=== PATIENT | male | born 1950 | race Caucasian/White ===

== ENCOUNTER → 2025-02-05 | Outpatient (CLI) | payer MEDICARE, SELFPAY ==
--- NOTE | 2025-02-05 09:46 | RAD_ITS ---
PROCEDURE: L/S SPINE MIN 4 VIEWS 02/05/2025 REASON FOR EXAM: INFLAMMATORY POLYARTHROPATHY TECHNIQUE: Procedure Code: RADSPLS Modality: DX Procedure: L/S SPINE MIN 4 VIEWS FINDINGS: No evidence acute fracture or dislocation. No visualized pars defects. Grade 1 anterolisthesis of L4 on L5. Severe disc space narrowing at L4-5 and L5-S1. Up to mild disc space narrowing of the other visualized levels. Vertebral body heights are maintained. RAD/L/S Spine Min 4 Views IMPRESSION: Spondylosis most pronounced in the lower lumbar spine. Spondylolisthesis. Reading Location: [id number]
--- NOTE | 2025-02-05 09:46 | RAD_ITS ---
PROCEDURE: L/S SPINE MIN 4 VIEWS 02/05/2025 REASON FOR EXAM: INFLAMMATORY POLYARTHROPATHY TECHNIQUE: Procedure Code: RADSPLS Modality: DX Procedure: L/S SPINE MIN 4 VIEWS FINDINGS: No evidence acute fracture or dislocation. No visualized pars defects. Grade 1 anterolisthesis of L4 on L5. Severe disc space narrowing at L4-5 and L5-S1. Up to mild disc space narrowing of the other visualized levels. Vertebral body heights are maintained. RAD/L/S Spine Min 4 Views IMPRESSION: Spondylosis most pronounced in the lower lumbar spine. Spondylolisthesis. Reading Location: [id number]
--- NOTE | 2025-02-05 09:46 | RAD_ITS ---
PROCEDURE: PELVIS 1 OR 2 VIEWS 02/05/2025 REASON FOR EXAM: INFLAMMATORY POLYARTHROPATHY TECHNIQUE: Procedure Code: RADPEL Modality: DX Procedure: PELVIS 1 OR 2 VIEWS FINDINGS: Single AP view of the pelvis demonstrates the bony pelvis intact. The SI joints are normal. The hip joints are normal. There is mild degenerative disc disease L3-4 through L5-S1. There are vascular calcifications in the pelvis and proximal thighs. RAD/Pelvis 1 or 2 Views IMPRESSION: No significant abnormality. Reading Location: [place] [id number]
--- NOTE | 2025-02-05 09:46 | RAD_ITS ---
PROCEDURE: PELVIS 1 OR 2 VIEWS 02/05/2025 REASON FOR EXAM: INFLAMMATORY POLYARTHROPATHY TECHNIQUE: Procedure Code: RADPEL Modality: DX Procedure: PELVIS 1 OR 2 VIEWS FINDINGS: Single AP view of the pelvis demonstrates the bony pelvis intact. The SI joints are normal. The hip joints are normal. There is mild degenerative disc disease L3-4 through L5-S1. There are vascular calcifications in the pelvis and proximal thighs. RAD/Pelvis 1 or 2 Views IMPRESSION: No significant abnormality. Reading Location: [place] [id number]
[2025-02-05 12:22] LABS: Hematocrit 42.9 % (40-54); Hemoglobin 14.1 g/dL (13.0-16.5); Immature Granulocytes Count 0.030 X10^3/uL (0.0-0.0); Mean Corp Hgb Conc 32.9 g/dL (32-36); Mean Corpuscular Volume 90.1 fL (80-94); Mean Platelet Vol. 13.7 fl (6.2-12.0); NRBC Flagged by Analyzer 0 % (0-5); Platelet Count 157 K/mm3 (150-450); RBC Distribution Width CV 13.2 % (11.6-14.6); RBC Distribution Width SD 43.6 fl (35.1-43.9); Red Blood Count 4.76 M/mm3 (4.6-6.2); White Blood Count 9.0 K/mm3 (4.4-11.0)
[2025-02-05 13:25] LABS: AST(SGOT) 19 U/L (<=37); Alanine Aminotransfer ALT/SGPT 32 U/L (<=46); Albumin, Serum 4.3 g/dL (3.4-4.8); Alkaline Phosphatase 78 U/L (40-129); Anion Gap 14 (5-15); BUN 19 mg/dL (4-19); BUN/Creat Ratio 15.5 RATIO (10-20); Calcium,Total 9.6 mg/dL (7.6-11.0); Carbon Dioxide 24.3 mmol/L (21.0-32.0); Chloride 101 mmol/L (98-108); Globulin 2.5 g/dL (2.2-4.2); Glucose 184 mg/dL (70-99); Hepatitis B Surface Antigen Nonreactive (Nonreactive); Hepatitis C Antibody Nonreactive (Nonreactive); Potassium 4.3 mmol/L (3.3-5.1); Vitamin D,25 Hydroxy 27.2 ng/mL (30-100)
== END | disposition home or self-care (01) ==
LOC: MTLAB 09:44
PROVIDERS: PCP Family Medicine; Referring Provider Internal Medicine Rheumatology; Visit Provider Internal Medicine Rheumatology
DX: M06.4 Inflammatory polyarthropathy (principal); Z79.899 Other long term (current) drug therapy; I10 Essential (primary) hypertension
CPT/HCPCS: 36415; 72110; 72170; 80053; 82306; 85025; 86706; 86803; 87340

== ENCOUNTER → 2025-04-10 | Outpatient (CLI) | payer MEDICARE, SELFPAY ==
[2025-04-10 15:53] LABS: Hematocrit 40.6 % (40-54); Hemoglobin 13.4 g/dL (13.0-16.5); Immature Granulocytes Count 0.020 X10^3/uL (0.0-0.0); Mean Corp Hgb Conc 33.0 g/dL (32-36); Mean Corpuscular Volume 91.6 fL (80-94); Mean Platelet Vol. 13.4 fl (6.2-12.0); NRBC Flagged by Analyzer 0 % (0-5); Platelet Count 175 K/mm3 (150-450); RBC Distribution Width CV 14.0 % (11.6-14.6); RBC Distribution Width SD 46.6 fl (35.1-43.9); Red Blood Count 4.43 M/mm3 (4.6-6.2); White Blood Count 7.1 K/mm3 (4.4-11.0)
[2025-04-10 16:10] LABS: AST(SGOT) 17 U/L (<=37); Alanine Aminotransfer ALT/SGPT 32 U/L (<=46); Albumin, Serum 4.1 g/dL (3.4-4.8); Alkaline Phosphatase 83 U/L (40-129); Anion Gap 12 (5-15); BUN 15 mg/dL (4-19); BUN/Creat Ratio 12.0 RATIO (10-20); Calcium,Total 9.3 mg/dL (7.6-11.0); Carbon Dioxide 23.6 mmol/L (21.0-32.0); Chloride 102 mmol/L (98-108); Globulin 2.3 g/dL (2.2-4.2); Glucose 283 mg/dL (70-99); Potassium 4.0 mmol/L (3.3-5.1)
== END | disposition home or self-care (01) ==
LOC: MTLAB 11:27
PROVIDERS: PCP Family Medicine; Visit Provider Internal Medicine Rheumatology
DX: M06.4 Inflammatory polyarthropathy (principal); Z79.899 Other long term (current) drug therapy
CPT/HCPCS: 36415; 80053; 85025